=== PATIENT | female | born 1940 | race Two or more races ===

== ENCOUNTER 2020-01-30 05:00 | Day surgery (SDC) | payer OTHER ==
[~2020-01-30 05:00] MED LIST: ALBUTERO IH; ATARAX50 MG PO; BUMETANIDE2 MG PO; ELIQUIS2.5 MG PO; MULTIPLE VITAM1 EACH PO; PROTONIX40 M1 PO; SIMVAST PO; [UNRECOGNIZED DRUG - OTHER] PO
[2020-01-30] MEDS ORDERED: MACROBID 100 M100 MG PO (09:00)
== END 2020-01-30 12:05 | disposition home or self-care (01) ==
LOC: CIR.AMB 05:00
PROVIDERS: ATTEND Obstetrics & Gynecology Gynecology
DX: N81.11 Cystocele, midline (principal); Z20.828 Contact with and (suspected) exposure to other viral communicable diseases